=== PATIENT | male | born 1960 | race Caucasian/White ===

== ENCOUNTER 2017-02-02 04:00 | Emergency (ER) | payer OTHER ==
[2017-02-02 05:15] LABS: BASOPHIL 0 % (0-2); EOSINOPHIL 0.2 % (0-5); HCT 46.5 % (42.0-52.0); HGB 16.3 g/dl (13.2-18.0); LYMPHOCYTE 20.5 % (15-48); MCH 30.5 pg (25.0-31.0); MCHC 35.1 g/dL (32.0-36.0); MCV 86.9 fL (78.0-100.0); MONOCYTE 2.6 % (0-12); NEUTROPHIL 76.7 % (41-80); PLT 224 K/uL (150-400); RBC 5.35 M/uL (4.70-6.00); RDW 12.7 % (11.5-14.0); WBC 14.7 K/uL (4.0-10.5)
[2017-02-02 05:32] LABS: ALBUMIN 4.4 g/dL (3.5-5.0); BILIRUBIN - TOTAL 0.4 mg/dL (0.1-1.0); CREATININE 0.9 mg/dL (0.7-1.2); GLOBULIN (CALCULATION) 2.5 g/dL (2.2-4.2); POTASSIUM 4.4 mmol/L (3.5-5.1); TOTAL PROTEIN 6.9 g/dL (6.4-8.3)
[2017-02-02 06:37] LABS: BILIRUBIN NEGATIVE (NEGATIVE); BLOOD 3+ Ery/uL (NEGATIVE); CLARITY CLEAR (CLEAR); COLOR YELLOW (YELLOW); GLUCOSE (U) NORMAL (NORMAL); KETONE (U) NEGATIVE (NEGATIVE); LEUKOCYTES NEGATIVE Leu/uL (NEGATIVE); NITRITE NEGATIVE (NEGATIVE); PROTEIN 1+ mg/dL (NEGATIVE); SPECIFIC GRAVITY 1.025 (1.001-1.030); UROBILINOGEN 0.2 mg/dL (0.2-1.0); pH 5.5 (5.0-9.0)
[2017-02-02 06:42] LABS: URINARY RBC TNTC
[2017-02-02 06:43] LABS: BACTERIA TRACE; CALCIUM OXALATE CRYSTALS TRACE; URINARY WBC RARE
== END 2017-02-02 07:40 | disposition home or self-care (01) ==
LOC: FER 04:00
PROVIDERS: Emergency Medicine Emergency Medical Services
DX: N13.2 Hydronephrosis with renal and ureteral calculous obstruction (principal); E86.9 Volume depletion, unspecified; Z98.890 Other specified postprocedural states
CPT/HCPCS: 36415; 80053; 81001; 82150; 83690; 85025; C9113; J1885; J2405; Q9967